=== PATIENT | female | born 1970 | race Two or more races ===

== ENCOUNTER 2024-11-05 22:17 | Emergency (ER) | payer OTHER ==
[2024-11-05 22:37] VITALS: BMI 21.5
[2024-11-05 23:20] LABS: BASO % 0.5 % (0-2.0); EOS % 0.4 % (0-4.5); HEMATOCRIT 37.5 % (32.4-45.2); HEMOGLOBIN 12.4 GM/dL (10.7-15.3); LYMPH % 13.9 % (8-40); MCH 29.6 pg (25.7-33.7); MEAN CELL VOLUME 89.8 fl (80-96); MEAN PLT VOLUME 8.3 fl (7.5-11.1); MONO % 4.5 % (3.8-10.2); NEUT % 80.7 % (42.8-82.8); PLATELET COUNT 286 10^3/uL (134-434); RBC 4.18 M/mm3 (3.60-5.2); RDW 15.3 % (11.6-15.6); WHITE BLOOD COUNT 7.6 K/mm3 (4.0-10.0)
[2024-11-05 23:26] LABS: INR 1.05 (0.83-1.09); PROTHROMBIN TIME (PATIENT) 11.4 SEC (9.7-13.0)
[2024-11-05 23:51] LABS: POTASSIUM 3.5 mmol/L (3.5-5.1)
[2024-11-05 23:53] LABS: CALCIUM 9.3 mg/dL (8.5-10.1)
[2024-11-05 23:54] LABS: ALBUMIN 3.8 g/dl (3.4-5.0); BLOOD UREA NITROGEN 12.5 mg/dL (7-18)
[2024-11-05 23:57] LABS: CREATININE 0.6 mg/dL (0.55-1.3)
[2024-11-05 23:58] LABS: BILIRUBIN,TOTAL 0.3 mg/dL (0.2-1)
[2024-11-05 23:59] LABS: TOT PROT 7.1 g/dl (6.4-8.2)
[2024-11-06] MEDS: LACTATED RINGERS SOLUTION 1,000 ML/1,000 ML INFUS.BAG IV SCH (03:04)
[2024-11-06 06:04] VITALS: BP 134/78; PULSE 79; RESP 16; TEMP 98
== END 2024-11-06 06:07 | disposition home or self-care (01) ==
LOC: JER 22:17
PROC: 3E033GC Introduction of Other Therapeutic Substance into Peripheral Vein, Percutaneous Approach (ICD-10-PCS; principal; 2024-11-06)
DX: R20.0 Anesthesia of skin (principal); R20.2 Paresthesia of skin
CPT/HCPCS: 36415; 70496-TC; 70498-TC; 71045-TC-FY; 80053; 82550; 84484; 85025; 85610; 93005; 93010; 93880-TC; 99285-25